=== PATIENT | female | born 1975 | race Caucasian/White ===

== ENCOUNTER 2018-05-19 00:08 | Emergency (ER) | payer OTHER ==
[~2018-05-19] VITALS: Ht 160 cm; Wt 70.0 kg
[2018-05-19 00:30] VITALS: BP 122/80; PULSE 103; RESP 18; TEMP 98.4; O2SAT 96
--- NOTE | 2018-05-19 00:38 | PD ---
HPI Chief Complaint: Injury Time Seen by Provider: 00:37 Travel History International Travel<30 days: No Contact w/Intl Traveler<30days: No Traveled to known affect area: No History of Present Illness HPI Mechanical slip and fall off of a plain winging which she was about 5 feet off the ground and landed awkwardly on her right ankle. Patient states that the pain is sharp, 8 out of 10 only when she puts weight on her right foot/ankle, nonradiating, skin is closed. Patient denies any alleviating or aggravating factors. PFSH Past Medical History ?: Not Social History Tobacco Use: No Allergies-Medications (Allergen,Severity, Reaction): Coded Allergies: No Known Allergies (Verified Allergy, Unknown, 05/19/18) Reported Meds & Prescriptions Reported Meds & Active Scripts Active Codeine-Acetaminophen 30-300 mg Tab 1 Tab PO Q6H PRN 3 Days Reported Xanax (Alprazolam) 0.5 Mg Tab 0.5 Mg PO 3-4 TIMES DAILY PRN Flexeril (Cyclobenzaprine HCl) 5 Mg Tab 5 Mg PO HS Sertraline (Sertraline HCl) 50 Mg Tab 50 Mg PO DAILY Cymbalta DR (Duloxetine HCl) 30 Mg Capdr 30 Mg PO DAILY Adderall Xr 24 HR (Amphetamine/Dextroamphetamine) 30 Mg Cap 30 Mg PO DAILY Once daily in the morning. Review of Systems General / Constitutional: No: Fever Eyes: No: Visual changes HENT: No: Headaches Cardiovascular: No: Chest Pain or Discomfort Respiratory: No: Shortness of Breath Gastrointestinal: No: Abdominal Pain Genitourinary: No: Dysuria Musculoskeletal: Positive: Limited ROM, Pain Skin: No Rash Neurologic: No: Weakness Psychiatric: No: Depression Endocrine: No: Polydipsia Hematologic/Lymphatic: No: Easy Bruising Physical Exam Narrative GENERAL: SKIN: Warm and dry. HEAD: Atraumatic. Normocephalic. EYES: Pupils equal and round. No scleral icterus. No injection or drainage. ENT: No nasal bleeding or discharge. Mucous membranes pink and moist. NECK: Trachea midline. No JVD. CARDIOVASCULAR: Regular rate and rhythm. RESPIRATORY: No accessory muscle use. Clear to auscultation. Breath sounds equal bilaterally. GASTROINTESTINAL: Abdomen soft, non-tender, nondistended. MUSCULOSKELETAL: Extremities without clubbing, cyanosis. Edema and ecchymosis to medial calcaneal region NEUROLOGICAL: Awake and alert. No obvious cranial nerve deficits. Motor grossly within normal limits. Five out of 5 muscle strength in the arms and legs. Normal speech. PSYCHIATRIC: Appropriate mood and affect; insight and judgment normal. Data Data Last Documented VS Vital Signs Date Time Temp Pulse Resp B/P (MAP) Pulse Ox O2 Delivery O2 Flow Rate FiO2 05/19/18 00:30 98.4 103 18 122/80 (94) 96 Orders Orders Foot, Complete (Eqt4tie) (05/19/18 ) Tramadol (Ultram) (05/19/18 01:45) Crutches (05/19/18 ) Splinting (05/19/18 ) Ed Discharge Order (05/19/18 01:54) [facility] Medical Decision Making Medical Screen Exam Complete: Yes Emergency Medical Condition: Yes Medical Record Reviewed: Yes Differential Diagnosis Contusion versus sprain versus fracture versus dislocation Narrative Course X-ray confirms that the patient has calcaneal fracture orthotech to place a short posterior leg ocl and crutches training. Diagnosis Primary Impression: Comminuted fracture of right calcaneus Referrals: Neema Valdivia DPM Patient Instructions: Calcaneal Fracture (DC), General Instructions Additional Instructions: Please contact the podiatry specialist for further care of your fractured heel bone. Please use crutches and avoid placing any weight on your right foot Scripts Codeine-Acetaminophen (Codeine-Acetaminophen) 30-300 mg Tab 1 TAB PO Q6H Y for PAIN for 3 Days, #12 TAB 0 Refills Prov: Primitivo Arriaga MD 05/19/18 Disposition: 01 DISCHARGE HOME Condition: Stable Primitivo Arriaga MD May 19, 2018 00:38
[2018-05-19] MEDS ORDERED: CYMB30CA PO (00:39)
[2018-05-19] MEDS ORDERED: ALPR.5 PO (00:39)
[2018-05-19] MEDS ORDERED: ADDE30XR PO (00:39)
[2018-05-19] MEDS ORDERED: CYCL5TAB PO (00:39)
[2018-05-19] MEDS ORDERED: SERT-132 PO (00:39)
--- NOTE | 2018-05-19 01:18 | RADRPT ---
EXAM DATE: 05/19/2018 1:05 AM EDT AGE/SEX: 43 years / Female INDICATIONS: Pain due to fall. CLINICAL DATA: This is the patient's initial encounter. Patient reports that signs and symptoms have been present for 1 day and indicates a pain score of 9/10. MEDICAL/SURGICAL HISTORY: . Fibromyalgia. None. COMPARISON: No prior exams available for comparison. FINDINGS: AP, lateral and oblique views of the right foot were obtained and demonstrate a comminuted fracture d eformity involving the distal mid calcaneus with ill-defined fracture lines. The talus and midfoot ar e intact. Metatarsals and phalanges are intact. There is soft tissue prominence over the proximal maggi t. CONCLUSION: Comminuted fracture deformity of the distal mid calcaneus. Electronically signed by: Aniceto Fair MD 05/19/2018 1:16 AM EDT
[2018-05-19] MEDS ORDERED: traMADol HCL 50 MG TAB PO ONE (01:45)
[2018-05-19] MEDS ORDERED: CODE30TA2 PO (01:49)
== END 2018-05-19 02:34 | disposition home or self-care (01) ==
LOC: NEPC 00:08
DX: S92.001A Unspecified fracture of right calcaneus, initial encounter for closed fracture (principal); W17.89XA Other fall from one level to another, initial encounter
CPT/HCPCS: 29515; 73630